=== PATIENT | male | born 1965 | race Caucasian/White ===

== ENCOUNTER 2022-05-09 20:44 | Emergency (ER) | payer OTHER ==
[~2022-05-09] VITALS: Ht 170.2 cm; Wt 94.3 kg
[2022-05-09 20:54] VITALS: BP 151/95
--- NOTE | 2022-05-09 21:00 | NUR ---
TO ER BED 1. [id number] FROM HOME C/O PANIC ATTACK X 1 HR. PT IS ALERT AND ORIENTED. RR EVEN AND NON LABORED. CONNECTED TO MONITOR. WARM BLANKET PROVIDED FOR COMFORT. AWAITING MD ORDERS
== END 2022-05-09 21:47 | disposition home or self-care (01) ==
LOC: ER 20:51
DX: F41.0 Panic disorder [episodic paroxysmal anxiety] (principal); I10 Essential (primary) hypertension